=== PATIENT | female | born 1940 | race Caucasian/White ===

== ENCOUNTER 2016-07-27 15:15 | Outpatient (RCR) | payer MEDICARE, OTHER ==
[~2016-07-27 15:15] MED LIST: DICLOFENIC; HCT25T; HYDR1TAB86 PO; LEVO750T6 PO; METH4TAB PO; MSL400TEC; PREMARIN; PRILOSEC; VITAMIN D3; [UNRECOGNIZED DRUG - OTHER]; [UNRECOGNIZED DRUG - OTHER]; [UNRECOGNIZED DRUG - REMARK]
== END 2016-07-27 15:59 | disposition home or self-care (01) ==
PROVIDERS: ATTEND Orthopaedic Surgery
DX: M54.2 Cervicalgia (principal)

== ENCOUNTER 2017-08-06 14:10 | Emergency (ER) | payer MEDICARE, OTHER ==
[~2017-08-06] VITALS: Ht 162.6 cm; Wt 70.3 kg
[2017-08-06] MEDS ORDERED: LIDOCAINE 2% 20 ML (XYLOCAINE) VIAL INJ ONE (15:15)
--- NOTE | 2017-08-06 15:18 | ED Lower Extremity ---
General Chief Complaint: Lower Extremity Stated Complaint: RT FOOT BURNING AND STINGING Nursing Triage Note: PATIENT WAS STEPPED ON BY A HORSE 1 MONTH AGO. SHE HAD XRAY OF HER RIGHT FOOT AT THAT TIME THAT SHOWED NO FRACTURE. SHE HAS CONTINUED TO HAVE PAIN, BURNING AND STINGING WITH NO IMPROVEMENT X1 MONTH AND DECIDED TO COME GET IT CHECKED OUT AGAIN TODAY. Nursing Sepsis Screen: No Definite Risk Source: patient Exam Limitations: no limitations History of Present Illness Date Seen by Provider: Aug 06, 2017 Time Seen by Provider: 15:14 Initial Comments to ER with reports ofpain over the dorsal lateral right foot. She was stepped on by a horse one month ago today. She was initially seen by primary care and had an x-ray done which was normal. She then followed up with Enio De Leon on the nurse practitioner from orthopedics who gave her a stoplight boot but she states the position that it held her foot and was uncomfortable so she didn't work. She has a swollen tender bump over the lateral aspect of the foot now. No fevers or chills. Onset: just prior to arrival Severity: moderate Pain/Injury Location: right foot (no hematoma) Method of Injury: direct blow Modifying Factors: Worse With Movement Allergies and Home Medications Allergies Uncoded Allergies: SULFA (Allergy, 09/02/09) Home Medications Doxycycline Hyclate 100 Mg Tablet, 100 MG PO BID Prescribed by: SAJI GRIER on 08/06/17 1614 Hydrocodone Bit/Acetaminophen 1 Each Tablet, 1 EACH PO Q 4 - 6 HRS PRN Prescribed by: ANTWAN CLAYTON on 10/01/08 1705 Hydrocodone/Acetaminophen 1 Each Tablet, 1 EACH PO Q6H PRN for PAIN-MODERATE TO SEVERE Prescribed by: SAJI GRIER on 08/06/17 1614 Levofloxacin 750 Mg Tablet, 750 MG PO QD FOR INFECTION Prescribed by: TERRY RG on 09/03/09147 Methylprednisolone 4 Mg/Dose-Pack Tab.ds.pk, 0 PO UD Prescribed by: TERRY RG on 09/03/09147 Patient Home Medication List Home Medication List Reviewed: Yes Constitutional: see HPI EENTM: see HPI Respiratory: no symptoms reported Cardiovascular: no symptoms reported Genitourinary: no symptoms reported Musculoskeletal: no symptoms reported Skin: see HPI Psychiatric/Neurological: No Symptoms Reported Past Netemvt-Xxxnwn-Rruubu Hx Patient Social History Alcohol Use: Denies Use Recreational Drug Use: No Smoking Status: Never a Smoker 2nd Hand Smoke Exposure: No Recent Foreign Travel: No Contact w/Someone Who Travel: No Recent Infectious Disease Expo: No Recent Hopitalizations: No Physical Abuse: No Sexual Abuse: No Seasonal Allergies Seasonal Allergies: No Past Medical History Surgeries: Yes Gallbladder, Hysterectomy, Orthopedic Respiratory: No Cardiac: Yes Hypertension Neurological: No Genitourinary: No Gastrointestinal: No Musculoskeletal: Yes Chronic Back Pain Endocrine: Yes Diabetes, Non-Insulin dep HEENT: No Cancer: No Psychosocial: No Nursing Suicide Risk Score: 0 Integumentary: No Blood Disorders: No Physical Exam Vital Signs Vital Signs - First Documented 08/06/17 14:20 Temp 98.0 Pulse 103 Resp 18 B/P (MAP) 126/95 (105) Pulse Ox 97 Capillary Refill : Less Than 3 Seconds General Appearance: WD/WN, no apparent distress HEENT: PERRL/EOMI, normal ENT inspection Neck: non-tender, full range of motion Respiratory: no respiratory distress, no accessory muscle use Hips: bilateral hip non-tender, bilateral hip normal inspection, bilateral hip normal range of motion Legs: bilateral leg non-tender, bilateral leg normal inspection, bilateral leg normal range of motion Knees: bilateral knee non-tender, bilateral knee normal inspection, bilateral knee normal range of motion Ankles: bilateral ankle non-tender, bilateral ankle normal inspection, bilateral ankle normal range of motion Feet: right foot other (tthere is a half-dollar sized area of fluctuance with tenderness to palpation over the dorsal lateral aspect of the right foot. Skin overlying this is erythematous. This will need to be abscessor hematoma. She is not on any anticoagulants so I'll anesthetize the skin and attempt to expel this.) Neurologic/Psychiatric: alert, normal mood/affect Skin: normal color, warm/dry Procedures/Interventions I&D : Blade Size: 11 I & D Procedure: betadine prep Packing/Drain: Idoform 1/ Progress over the most fluctuant area to the dorsal lateral aspect of the right foot I anesthetized with 2 mL of 2% lidocaine without epinephrine. This was after the skin was cleansed with a Betadine swab. This was allowed to dry. A 1 cm incision was made with 11 blade scalpel. A moderate amount of clotted blood of grape jelly consistency was expelled. Culture was collected and sent to lab. There is no purulence to this. Wound was left open and packed with quarter inch iodoform packing. This was then covered with 4 x 4 gauze and Coban. Progress/Results/Core Measures Results/Orders My Orders Orders - SAJI GRIER APRN Foot, Right, 3 View (08/06/17 15:07) Lidocaine 2% Injection 20 Ml (Xylocaine (08/06/17 15:15) Wound Culture (08/06/17 15:20) Vital Signs/I&O 08/06/17 14:20 Temp 98.0 Pulse 103 Resp 18 B/P (MAP) 126/95 (105) Pulse Ox 97 Blood Pressure Mean: 105 Diagnostic Imaging Diagonstic Imaging: Xray Comments NAME: BARON ARECHIGA MED REC#: [id number] PT STATUS: REG ER : 1940 PHYSICIAN: SAJI GRIER APRN ADMIT DATE: 08/06/17/ER Signed Date of Exam:08/06/17 FOOT, RIGHT, 3 VIEW INDICATION: Horse stepped on her foot about a month ago. FINDINGS: The alignment is normal. Very tiny osseous density adjacent to the base of the proximal phalanx of the fifth toe. Similar tiny osseous lesions seen at the base of the fifth metatarsal. The possibility of tiny avulsion fractures cannot be excluded. Otherwise, mild degenerative changes. IMPRESSION: Questionable tiny avulsion fractures about the fifth metatarsal, as described. Mild degenerative changes. No other acute fracture or dislocation. Dictated by: Dictated on workstation # [id number] Dict: 08/06/17 1541 Trans: 08/06/17 1549 [facility] [id number] Interpreted by: ORLIN MERRITT MD Electronically signed by: ORLIN MERRITT MD 08/06/17 1549 Departure Impression Primary Impression: Traumatic hematoma of right foot Disposition: 01 HOME, SELF-CARE Condition: Stable Departure-Patient Inst. Decision time for Depature: 16:12 Referrals: DION YANEZ (PCP/Family) Primary Care Physician Patient Instructions: HEMATOMA Add. Discharge Instructions: 1. Change the packing inside of the wound once a day. Change the dressing overlying the wound at least once a day and more often if needed as it becomes saturated. Return to the emergency room for any increasing redness swelling or pain. Follow up with Zakiya Yanez later this week for recheck. Antibiotics as directed. You may shower allowing water run over this but do not soak it in water such as waiting in a bathtub, swimming pool or [place] until the wound has healed.All discharge instructions reviewed with patient and/or family. Voiced understanding. Scripts Hydrocodone/Acetaminophen ([place] 5-325 Tablet) 1 Each Tablet 1 EACH PO Q6H PRN for PAIN-MODERATE TO SEVERE, #10 TAB Prov: SAJI GRIER APRN 08/06/17 Doxycycline Hyclate (Doxycycline Hyclate) 100 Mg Tablet 100 MG PO BID, #14 TAB Prov: SAJI GRIER APRN 08/06/17 SAJI GRIER APRN Aug 06, 2017 15:18
--- NOTE | 2017-08-06 15:48 | Diagnostic Imaging Report ---
INDICATION: Horse stepped on her foot about a month ago. FINDINGS: The alignment is normal. Very tiny osseous density adjacent to the base of the proximal phalanx of the fifth toe. Similar tiny osseous lesions seen at the base of the fifth metatarsal. The possibility of tiny avulsion fractures cannot be excluded. Otherwise, mild degenerative changes. IMPRESSION: Questionable tiny avulsion fractures about the fifth metatarsal, as described. Mild degenerative changes. No other acute fracture or dislocation. Dictated by: Dictated on workstation # [id number]
[2017-08-06] MEDS ORDERED: HYDR-757 PO (16:14)
[2017-08-06] MEDS ORDERED: DOXY100T2 PO ×2 (16:14→16:18)
[2017-08-06 16:21] VITALS: BP 126/95
[2017-08-27] MEDS ORDERED: DICL75TA2 PO (09:24)
[2017-08-27] MEDS ORDERED: LISI10TA2 PO (09:24)
[2017-08-27] MEDS ORDERED: TRIA1CAP4 PO (09:24)
[2017-08-27] MEDS ORDERED: METF750T2 PO (09:24)
[2017-08-27] MEDS ORDERED: GABA-486 PO (09:24)
[2017-08-27] MEDS ORDERED: OMEP40CA36 PO (09:24)
[2017-08-27] MEDS ORDERED: POTA20TA8 PO (09:24)
[2017-08-27] MEDS ORDERED: EST1.25T PO (09:36)
[2017-08-27] MEDS ORDERED: LORA10TA7 PO (09:36)
[2017-08-27] MEDS ORDERED: NFBIOT1000 PO (09:36)
[2017-08-27] MEDS ORDERED: MAGN400T39 PO (09:36)
[2017-08-27] MEDS ORDERED: L.AC1CAP6 PO (09:36)
[2017-08-27] MEDS ORDERED: CYCL10TA9 PO (09:36)
[2017-08-27] MEDS ORDERED: VITA1TAB17 PO (09:36)
[2017-08-27] MEDS ORDERED: FOLI0.4T2 PO (09:36)
== END 2017-08-06 16:26 | disposition home or self-care (01) ==
LOC: EDUNIT# 14:10 → ER 14:12
DX: S90.31XA Contusion of right foot, initial encounter (principal); I10 Essential (primary) hypertension; E11.9 Type 2 diabetes mellitus without complications; Z88.2 Allergy status to sulfonamides; Z79.52 Long term (current) use of systemic steroids; Z90.710 Acquired absence of both cervix and uterus; X58.XXXA Exposure to other specified factors, initial encounter
CPT/HCPCS: 73630; 87070; 87205

== ENCOUNTER → 2017-09-14 | Outpatient (CLI) | payer MEDICARE, OTHER ==
[~2017-09-14] MED LIST changes: +CYCL10TA9 PO; +DICL75TA2 PO; +DOXY100T2 PO; +EST1.25T PO; +FOLI0.4T2 PO; +GABA-486 PO; +HYDR-757 PO; +L.AC1CAP6 PO; +LISI10TA2 PO; +LORA10TA7 PO; +MAGN400T39 PO; +METF750T2 PO; +NFBIOT1000 PO; +OMEP40CA36 PO; +POTA20TA8 PO; +TRIA1CAP4 PO; +VITA1TAB17 PO
--- NOTE | 2017-09-14 11:11 | Diagnostic Imaging Report ---
PROCEDURE: US Non-ob pelvis comp/trans. TECHNIQUE: Multiple realtime grayscale images were obtained of the pelvis in various projections endovaginally. Transabdominal imaging was also performed. INDICATION: Right ovarian cyst noted on recent CT. Correlation is made with CT study from 08/26/2017. The uterus is surgically absent. The right ovary does contain a large cyst measuring 7.7 x 5.1 x 5.6 cm. No internal vascularity is seen. Left ovary contains several smaller cysts, largest approximately 18 mm in size. There is blood flow bilaterally. No free fluid is seen. IMPRESSION: Bilateral ovarian cysts, largest on the right correlating with the CT abnormality. Followup ultrasound to confirm stability could be obtained. Dictated by: Dictated on workstation # [id number]
== END ==
LOC: RAD 09:54
PROVIDERS: ATTEND Surgery
DX: N83.292 Other ovarian cyst, left side (principal); N83.291 Other ovarian cyst, right side
CPT/HCPCS: 76830; 76856

== ENCOUNTER 2017-10-15 05:48 | Outpatient (CLI) | payer MEDICARE, OTHER ==
[~2017-10-15] VITALS: Ht 162.6 cm; Wt 70.3 kg
[2017-10-15] MEDS ORDERED: DIPH25CA79 PO (11:55)
[2017-10-15] MEDS ORDERED: KRIL1CAP18 PO (11:55)
== END 2017-10-15 12:08 | disposition home or self-care (01) ==
LOC: PREOP 05:48
PROVIDERS: ATTEND Obstetrics & Gynecology
DX: Z01.818 Encounter for other preprocedural examination (principal)

== ENCOUNTER 2017-10-18 08:22 | Day surgery (SDC) | payer MEDICARE, OTHER ==
[~2017-10-18] VITALS: Ht 162.6 cm; Wt 70.3 kg
[~2017-10-18 08:22] MED LIST changes: +DIPH25CA79 PO; +KRIL1CAP18 PO
[2017-10-18] MEDS ORDERED: ceFAZolin INJECTION 1,000 MG in NS (IVPB) 50 ML IV ONE (08:45)
[2017-10-18] MEDS ORDERED: LACTATED RINGERS 1,000 ML IV PRN ×2 (08:45)
[2017-10-18 08:53] VITALS: BP 129/82
[2017-10-18] MEDS ORDERED: ONDANSETRON 4 MG/2 ML (SDV) Z0FRAN IV ONE (09:00)
[2017-10-18] MEDS ORDERED: FAMOTIDINE 20MG/2ML IV (PEPCID) IV ONE (09:00)
[2017-10-18 09:04] LABS: BASOPHILS # (AUTO) 0.1 10^3/uL (0.0-0.1); BASOPHILS % (AUTO) 0 % (0-10); EOSINOPHILS # (AUTO) 0.3 10^3/uL (0.0-0.3); EOSINOPHILS % (AUTO) 2 % (0-10); HEMATOCRIT 43 % (35-52); HEMOGLOBIN 14.8 G/DL (11.5-16.0); LYMPHOCYTES # (AUTO) 7.9 X 10^3 (1.0-4.0); LYMPHOCYTES % (AUTO) 48 % (12-44); MEAN CORPUSCULAR HEMOGLOBIN 33 PG (25-34); MEAN CORPUSCULAR HGB CONC 35 G/DL (32-36); MEAN CORPUSCULAR VOLUME 94 FL (80-99); MEAN PLATELET VOLUME 9.1 FL (7.4-10.4); MONOCYTES % (AUTO) 6 % (0-12); NEUTROPHILS # (AUTO) 7.1 X 10^3 (1.8-7.8); NEUTROPHILS % (AUTO) 43 % (42-75); PLATELET COUNT 432 10^3/uL (130-400); WHITE BLOOD COUNT 16.3 10^3/uL (4.3-11.0)
[2017-10-18] MEDS ORDERED: ceFAZolin 1,000 MG (ANCEF) VIAL ONE (09:04)
[2017-10-18] MEDS ORDERED: NS (IVPB) 50 ML ONE (09:04)
[2017-10-18] MEDS ORDERED: ONDANSETRON 4 MG/2 ML (SDV) Z0FRAN ONE ×2 (09:06→11:07)
[2017-10-18 09:22] LABS: BUN/CREATININE RATIO 20; CALCIUM 9.7 MG/DL (8.5-10.1); CARBON DIOXIDE 26 MMOL/L (21-32); CHLORIDE 98 MMOL/L (98-107); CREATININE SERUM 0.75 MG/DL (0.60-1.30); GFR ESTIMATED > 60; GLUCOSE 88 MG/DL (70-105); POTASSIUM 3.4 MMOL/L (3.6-5.0); SODIUM 136 MMOL/L (135-145)
[2017-10-18] MEDS ORDERED: BUPIVACAINE 0.25% 30 ML (SENSORCAINE) VIAL ONE (09:24)
[2017-10-18] MEDS ORDERED: MIDAZOLAM 2 MG/2 ML (VERSED) VIAL ONE (09:53)
[2017-10-18] MEDS ORDERED: fentaNYL INJECTION 100 MCG/2 ML AMP ONE (09:53)
[2017-10-18 10:15] LABS: BAND NEUTROPHILS 1 %; BASOPHILS % (MANUAL) 0 %; EOSINOPHILS % (MANUAL) 5 %; LYMPHOCYTES % (MANUAL) 41 %; MONOCYTES % (MANUAL) 3 %; NEUTROPHILS % (MANUAL) 48 %; RBC MORPH NORMAL; REACTIVE LYMPHOCYTES 2 %
[2017-10-18] MEDS ORDERED: D5 LR IV SOLUTION 1,000 ML IV SCH (10:25)
--- NOTE | 2017-10-18 10:25 | Progress Note-Pre Operative ---
Pre-Operative Progress Note H&P Reviewed The H&P was reviewed, patient examined and no changes noted. Date Seen by Provider: Oct 18, 2017 Time Seen by Provider: 10:00 Date H&P Reviewed: Oct 18, 2017 Time H&P Reviewed: 09:45 Pre-Operative Diagnosis: Pelvic cystic mass ALAN MALDONADO DO Oct 18, 2017 10:25 am
[2017-10-18] MEDS ORDERED: HYDR-757 PO (10:27)
[2017-10-18] MEDS ORDERED: IBUP-1773 PO (10:27)
--- NOTE | 2017-10-18 10:29 | Discharge Inst-Women's Service ---
Discharge Inst-Women's Serv Depart Medication/Instructions New, Converted or Re-Newed RX: RX on Chart Consults/Follow Up Additional Follow Up: Yes Orders/Referrals Dr. Plata in 2 weeks Activity Activity: Activity as Tolerated Driving Instructions: You May Drive (do not drive if taking hydrocodone) NO SMOKING: NO SMOKING Diet Discharge Diet: No Restrictions Symptoms to Report to : Bleeding Excessive, Pain Increased, Fever Over 101 Degrees F, Questions/Concerns For Any Problems or Questions: Contact Your Physician Skin/Wound Care Infection Signs and Symptoms: Increased Redness, Foul Odor of Wound, Increased Drainage, Skin Itchy or Has a Rash, Increased Swelling, Temperature Above 101 F Operative Area Clean and Dry: Keep Incision Clean/Dry Stitches/Pema/Dermabond: Dermabond, Care of Stitches Bathing Instructions: ALAN Shi DO Oct 18, 2017 10:29 am
[2017-10-18] MEDS ORDERED: HYDROcodone/APAP 5 MG/325 MG (LORTAB) TAB PO PRN (10:30)
[2017-10-18] MEDS ORDERED: ONDANSETRON 4 MG/2 ML (SDV) Z0FRAN IVP PRN ×2 (10:30→11:15)
[2017-10-18] MEDS ORDERED: KETOROLAC 30 MG/ML VIAL IVP ONE (10:30)
[2017-10-18] MEDS ORDERED: proPOfol 200 MG/20 ML (DIPRIVAN) VIAL IV ONE (11:07)
[2017-10-18] MEDS ORDERED: ROCURONIUM 10 MG/ML 5 ML SYRINGE IV ONE (11:07)
[2017-10-18] MEDS ORDERED: ISOFLURANE (FORANE) 15 ML/15 MIN INHALATION ONE (11:07)
[2017-10-18] MEDS ORDERED: LIDOCAINE PF 2% 5 ML (XYLOCAINE) VIAL ONE (11:07)
[2017-10-18] MEDS ORDERED: MEPERIDINE (DEMEROL) INJ 50 MG/ML IVP PRN (11:15)
[2017-10-18] MEDS ORDERED: GLYCOPYRROLATE 0.2 MG/ML (ROBINUL) 2 ML VIAL ONE (11:45)
[2017-10-18] MEDS ORDERED: NEOSTIGMINE 1 MG/ML 5 ML SYRINGE ONE (11:45)
[2017-10-18] MEDS: morphine INJ 10 MG/ML 1ML (SYR OR VIAL) IVP PRN ×2 (12:18→12:22)
--- NOTE | 2017-10-18 12:23 | Anesthesia-General Post-Op ---
General Patient Condition Mental Status/LOC: Same as Preop Cardiovascular: Satisfactory Nausea/Vomiting: Absent Respiratory: Satisfactory Pain: Controlled Complications: Absent Post Op Complications Complications None Follow Up Care/Instructions Patient Instructions None needed. Anesthesia/Patient Condition Patient Condition Patient is doing well, no complaints, stable vital signs, no apparent adverse anesthesia problems. No complications reported per nursing. [place] [facility] [place]: Yes HANSA HUBER CRNA Oct 18, 2017 12:23
[2017-10-18 13:05] VITALS: BP 139/77
[2017-10-18 13:35] VITALS: BP 120/65
[2017-10-18 14:05] VITALS: BP 122/60
--- NOTE | 2017-10-18 14:26 | OPERATIVE REPORT ---
DATE OF SERVICE: 10/18/2017 PREOPERATIVE DIAGNOSIS: A 77-year-old female with cystic pelvic mass. POSTOPERATIVE DIAGNOSES: A 77-year-old female with cystic pelvic mass, right ovarian simple cystic mass and grossly normal-appearing left ovary. PROCEDURE: Laparoscopic bilateral salpingo-oophorectomy. SURGEON: Alan Maldonado DO ANESTHESIA: General endotracheal. ESTIMATED BLOOD LOSS: Minimal. URINE OUTPUT: 75 mL clear at the end of the procedure. FLUIDS: 550 mL Lactated Ringer's solution. FINDINGS: A simple cystic appearing 7 x 5 cm right ovarian cyst with no evidence of excrescences and clear fluid within it. Grossly normal-appearing left ovary. SPECIMEN SENT: Bilateral ovaries, right ovarian cyst aspirate and pelvic washings. INDICATION FOR PROCEDURE: This 77-year-old female was sent to my office due to an incidental finding of a pelvic mass on CT exam and follow up ultrasound revealed that it was simple appearing in nature. Tumor markers were negative. There is no pelvic lymphadenopathy appreciated on CT exam. Due to the suspicion for benign findings, I discussed with the patient removal of this mass laparoscopically. Risks of the procedure were discussed with the patient in detail with her family present. Risk of bleeding, infection, damage to any of the surrounding structures including, but not limited to bowel, bladder, kidneys. Risk for metastasis of an iatrogenic rupture was discussed with the patient as well. Risk from anesthesia pre and postoperative expectations in postoperative recovery timeframe was all discussed. After all of her questions were answered, consent was obtained in the preoperative area and the patient was taken to the operating room. OPERATIVE REPORT IN DETAIL: Once in the operating room, general anesthesia was found to be adequate, placed in the supine position and prepped and draped in normal sterile fashion. Guzman catheter was placed using sterile technique. I then started by infiltrating supraumbilically the skin with 0.25% Marcaine and making a 5 mm incision. A Veress needle is introduced through these incisions and intraperitoneal placement was confirmed using a saline drop test. I then proceeded with insufflation using CO2 gas and an opening pressure of 5 mmHg was noted. I proceeded to a maximum pressure of 15 mmHg at which point I removed the Veress needle and introduced a 5 mm blunt trocar through the incision. Intraperitoneal placement was once again confirmed using the laparoscope. I then had the patient placed in steep Trendelenburg after briefly examining the upper abdominal anatomy, which appears to be grossly normal. After moving the bowel out of the way, there is a normal-appearing left ovary and tube, which is identified. Two separate trocars were placed. A 12 mm suprapubic trocar and a 5 mm left lower quadrant trocar was placed in similar fashion. Once these were in place, I am able to manipulate my findings. In order to amputate the left ovary, which I grasped using a laparoscopic [place] and I am able to bipolar cauterize and transect the IP ligament using the LigaSure device. Once this was done, I am able to dissect the left ovary and tube off the left pelvic sidewall. In similar fashion, I have to isolate the right infundibulopelvic ligament from this ovarian cyst, which I am able to elevate up out of the pelvis. Once it was isolated, I bipolar cauterized and transected using the LigaSure amputating away from the sidewall. I then introduced an Endopouch bag into the peritoneal cavity through my 12 mm incision trocar. The large ovarian specimen was then placed within the Endopouch bag. I then used a laparoscopic needle to drain the fluid off of this to allow for removal through the 12 mm site. Once this was done, it was easily removed through the 12 mm site without extending the incision. I then on a second pass placed a second Endopouch bag through the 12 mm site and removed the left ovary and tube. Once this was done, there was no active bleeding noted from any of my dissection planes. I copiously irrigated the pelvis using normal saline. Once again, no active bleeding was noted. I have the patient taken out of steep Trendelenburg and released insufflation through my trocar site, removing all 3 trocars under direct visualization of the laparoscope. A 10 mL of 0.25% Marcaine were placed in the peritoneal cavity for postoperative pain management. I then closed the fascia of the 12 mm incision using 0 Vicryl suture in interrupted fashion. The skin reapproximated using 4-0 Monocryl in interrupted subcuticular stitches. Dermabond was applied to the incision and Band-Aids were placed over these. The patient tolerated the procedure well and sent to recovery area in stable condition. Lap and sponge counts were correct at the end of the procedure. Instrument count was correct as well. Guzman catheter was removed in the operating room. Job ID: [id number] DocumentID: [id number] Dictated Date: 10/18/2017 12:02:38 Clerical Order Filler Date: 10/18/2017 14:25:36 Dictated By: ALAN MALDONADO DO
[2017-10-18 14:30] VITALS: BP 122/60
== END 2017-10-18 14:30 | disposition home or self-care (01) ==
LOC: SDC 08:22
PROVIDERS: ATTEND Obstetrics & Gynecology
DX: N83.201 Unspecified ovarian cyst, right side (principal); I10 Essential (primary) hypertension; K21.9 Gastro-esophageal reflux disease without esophagitis; E11.9 Type 2 diabetes mellitus without complications; Z79.899 Other long term (current) drug therapy; Z79.84 Long term (current) use of oral hypoglycemic drugs
CPT/HCPCS: 36415; 80048; 85007; 85027; 86850; 86900; 86901; 87081; 94664

== ENCOUNTER 2017-10-20 10:07 | Emergency (ER) | payer MEDICARE, OTHER ==
[~2017-10-20] VITALS: Ht 162.6 cm; Wt 69.4 kg
[~2017-10-20 10:07] MED LIST changes: +IBUP-1773 PO
--- NOTE | 2017-10-20 10:48 | ED Abdominal Pain ---
General Chief Complaint: -Female Stated Complaint: HAVING TROUBLE URINATING Nursing Triage Note: pt presents to ed with complaints of "dribbling" when trying to urinate. pt reports she feels like she is having some retention and unable to fully empty her bladder. pt had a opherectomy done by justine. pt reports she had some issues prior to surgery but feels they have increased since. pt also believes she has a yeast infection. Sepsis Screen: No Definite Risk Source of Information: Patient, Family Exam Limitations: No Limitations History of Present Illness Date Seen by Provider: Oct 20, 2017 Time Seen by Provider: 10:27 Initial Comments A 77-year-old white female presents with urinary retention following nephrectomy for ovarian cyst by Dr. PLATA 2 days ago. The patient has been able to pass small amounts of urine but still has an uncomfortable full sensation over her bladder. She has had no associated fever or chills, she denies hematuria, and has had no associated nausea or vomiting. Allergies and Home Medications Allergies Coded Allergies: Sulfa (Sulfonamide Antibiotics) (Unverified Allergy, Mild, ITCHING, ) Home Medications Biotin 1,000 Mcg Tablet, 1,000 MCG PO DAILY, (Reported) Diclofenac Sodium 75 Mg Tablet.dr, 75 MG PO BID PRN for FOOT/BACK/KNEE PAIN, ( Reported) Diphenhydramine HCl 25 Mg Capsule, 25 MG PO HS, (Reported) Estrogens Conjugated 1.25 Mg Tab, 1.25 MG PO DAILY, (Reported) Folic Acid 0.4 Mg Tablet, 0.4 MG PO DAILY, (Reported) Gabapentin 100 Mg Capsule, 100 MG PO HS, (Reported) Hydrocodone/Acetaminophen 1 Each Tablet, 1 TAB PO Q4H PRN for PAIN-MODERATE Prescribed by: ALAN PLATA on 10/18/17 1027 Ibuprofen 600 Mg Tablet, 600 MG PO Q6H Prescribed by: ALAN PLATA on 10/18/17 1027 Krill/Om-3/Dha/Epa/Phospho/Ast 1 Each Capsule, 1 EACH PO DAILY, (Reported) L.acidoph & Paracasei,B.lactis 1 Each Capsule, 1 CAP PO DAILY, (Reported) Lisinopril 10 Mg Tablet, 10 MG PO DAILY, (Reported) Loratadine 10 Mg Tablet, 10 MG PO DAILY, (Reported) Magnesium Oxide 400 Mg Tablet, 400 MG PO DAILY, (Reported) Metformin HCl 750 Mg Tab.er.24h, 750 MG PO DAILY, (Reported) Omeprazole 40 Mg Capsule.dr, 40 MG PO DAILY, (Reported) Potassium Chloride 20 Meq Tab.er.prt, 20 MEQ PO MoWeFr, (Reported) Triamterene/Hydrochlorothiazid 1 Each Capsule, 1 CAP PO DAILY, (Reported) Vitamin B Complex 1 Each Tablet, 1 TAB PO DAILY, (Reported) Patient Home Medication List Home Medication List Reviewed: Yes Review of Systems Constitutional: No chills, No fever EENTM: No Blurred Vision Respiratory: Denies Cough Gastrointestinal: Denies Abdomen Distended, Denies Diarrhea, Denies Vomiting Genitourinary: Denies Burning; Incontinence, Urgency Musculoskeletal: No back pain Skin: No rash Psychiatric/Neurological: No Symptoms Reported Endocrine: No Symptoms Reported Hematologic/Lymphatic: No Symptoms Reported Past Njqewun-Gesfrv-Omsvgs Hx Past Med/Social Hx: Reviewed Nursing Past Med/Soc Hx Patient Social History Alcohol Use: Denies Use Recreational Drug Use: No Smoking Status: Never a Smoker 2nd Hand Smoke Exposure: No Recent Foreign Travel: No Contact w/Someone Who Travel: No Recent Infectious Disease Expo: No Recent Hopitalizations: Yes (CONCUSSION) Physical Abuse: No Sexual Abuse: No Mistreated: No Fear: No Immunizations Up To Date Tetanus Booster (TDap): Unknown Date of Pneumonia Vaccine: Dec 15, 2014 Seasonal Allergies Seasonal Allergies: Yes Past Medical History Surgeries: Yes (BILAT TKR, BACK X4) Gallbladder, Hysterectomy, Oophorectomy, Orthopedic Respiratory: No Cardiac: Yes Hypertension Neurological: No Reproductive Disorders: Yes Female Reproductive Disorders: Ovarian Cyst 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: Hysterectomy Sexually Transmitted Disease: No HIV/AIDS: No Genitourinary: No Gastrointestinal: Yes Colitis, Gastroesophageal Reflux, Chronic Constipation, Chronic Diarrhea Musculoskeletal: Yes (STENOSIS) Arthritis, Chronic Back Pain Endocrine: Yes Diabetes, Non-Insulin dep HEENT: No Loss of Vision: Bilateral Hearing Impairment: Denies Cancer: No Psychosocial: No Nursing Suicide Risk Score: 0 Integumentary: No Blood Disorders: No Adverse Reaction/Blood Tranf: No (HAS HAD BLOOD WITH NO REACTION) Family Medical History No Pertinent Family Hx Physical Exam Vital Signs Vital Signs - First Documented 10/20/17 10:17 Temp 97.6 Pulse 88 Resp 16 B/P (MAP) 157/68 (97) Pulse Ox 94 Capillary Refill : Less Than 3 Seconds Height/Weight/BMI Height: 5'4.00" Weight: 153lbs. 0.0oz. 69.658110dl; 26.6 BMI Method:Stated General Appearance: WD/WN, no apparent distress HEENT: normal ENT inspection Neck: normal inspection Respiratory: lungs clear Cardiovascular: regular rate, rhythm Gastrointestinal: normal bowel sounds, non tender, soft Extremities: normal range of motion, non-tender Back: normal inspection Neurologic/Psychiatric: no motor/sensory deficits, alert, normal mood/affect Skin: normal color, warm/dry Progress/Results/Core Measures Results/Orders Lab Results Laboratory Tests Test 10/20/17 10:40 Range/Units Urine Color ORANGE Urine Clarity SLIGHTLY CLOUDY Urine pH 5 5-9 Urine Specific [place] 1.010 L 1.016-1.022 Urine Protein NEGATIVE NEGATIVE Urine Glucose (UA) NEGATIVE NEGATIVE Urine Ketones NEGATIVE NEGATIVE Urine Nitrite POSITIVE H NEGATIVE Urine Bilirubin 1+ H NEGATIVE Urine Urobilinogen 1 NORMAL MG/DL Urine Leukocyte Esterase NEGATIVE NEGATIVE Urine RBC (Auto) NEGATIVE NEGATIVE Urine RBC NONE /HPF Urine WBC NONE /HPF Urine Squamous Epithelial Cells RARE /HPF Urine Crystals NONE /LPF Urine Bacteria NEGATIVE /HPF Urine Casts NONE /LPF Urine Mucus NEGATIVE /LPF Urine Culture Indicated YES My Orders Orders - YUSUF EMERY MD Ua Culture If Indicated (10/20/17 10:26) Catheter(Urinary) Care .0300, 1500 (10/20/17 10:26) Bladder Scan (10/20/17 10:26) Urine Culture (10/20/17 10:40) Vital Signs/I&O 10/20/17 10:17 Temp 97.6 Pulse 88 Resp 16 B/P (MAP) 157/68 (97) Pulse Ox 94 Blood Pressure Mean: 97 Progress Progress Note : Time: 11:07 Progress Note After consultation with Dr. Batista and after determining that the patient had greater than 200 mL residual urine on catheterization the patient was provided with a leg bag and asked follow up with Dr. Plata on Sunday. Departure Impression Primary Impression: Urinary retention Disposition: 01 HOME, SELF-CARE Condition: Improved Departure-Patient Inst. Decision time for Depature: 11:25 Referrals: YUSUF SRINIVASAN MD (PCP) Primary Care Physician YANEZ,DION J PEDIATRIC OCCUPATIONAL THERAPIST (Family) Primary Care Physician ALAN PLATA DO Patient Instructions: Urinary Retention (DC) Add. Discharge Instructions: All discharge instructions reviewed with patient and/or family. Voiced understanding. Follow-up with Dr. cavazos on Sunday. Employ the catheter and leg bag in the interim. Return if any problems or questions. YUSUF EMERY MD Oct 20, 2017 10:48
[2017-10-20 10:49] LABS: CLARITY,URINE SLIGHTLY CLOUDY; GLUCOSE, URINE (UA) NEGATIVE (NEGATIVE); KETONES,URINE NEGATIVE (NEGATIVE); LEUKOCYTE ESTERASE ,URINE NEGATIVE (NEGATIVE); NITRITE,URINE POSITIVE (NEGATIVE); PH,URINE 5 (5-9); PROTEIN,URINE NEGATIVE (NEGATIVE); UROBILINOGEN,URINE 1 MG/DL (NORMAL)
[2017-10-20 11:00] LABS: BACTERIA,URINE NEGATIVE /HPF; BILIRUBIN,URINE 1+ (NEGATIVE); SQUAMOUS EPITHELIAL CELL,UR RARE /HPF
[2017-10-20 11:02] LABS: COLOR,URINE ORANGE
[2017-10-20 11:58] VITALS: BP 145/87
== END 2017-10-20 11:58 | disposition home or self-care (01) ==
LOC: EDUNIT# 10:07 → ER 10:09
DX: R33.9 Retention of urine, unspecified (principal); I10 Essential (primary) hypertension; K21.9 Gastro-esophageal reflux disease without esophagitis; E11.9 Type 2 diabetes mellitus without complications; Z87.19 Personal history of other diseases of the digestive system; Z90.5 Acquired absence of kidney; Z87.448 Personal history of other diseases of urinary system; Z88.2 Allergy status to sulfonamides; Z79.84 Long term (current) use of oral hypoglycemic drugs; Z96.653 Presence of artificial knee joint, bilateral; Z90.710 Acquired absence of both cervix and uterus
CPT/HCPCS: 51702; 81000; 87088

== ENCOUNTER 2018-01-18 13:58 | Outpatient (CLI) | payer MEDICARE, OTHER ==
[~2018-01-18] VITALS: Ht 162.6 cm; Wt 68.5 kg
[~2018-01-18 13:58] MED LIST changes: +HYDR-4226 PO; -HYDR-757 PO
== END 2018-01-18 14:26 | disposition home or self-care (01) ==
LOC: PREOP 13:58
PROVIDERS: ATTEND Surgery
DX: Z01.818 Encounter for other preprocedural examination (principal)

== ENCOUNTER 2018-01-22 06:55 | Day surgery (SDC) | payer MEDICARE, OTHER ==
[~2018-01-22] VITALS: Ht 162.6 cm; Wt 68.5 kg
[2018-01-22] MEDS ORDERED: LACTATED RINGERS 1,000 ML IV ONE (07:09)
[2018-01-22] MEDS ORDERED: MIDAZOLAM 2 MG/2 ML (VERSED) VIAL ONE (07:15)
[2018-01-22] MEDS ORDERED: PROPOFOL INJECTION 50 ML IV ONE (07:15)
[2018-01-22] MEDS ORDERED: LACTATED RINGERS 1,000 ML IV STA (07:30)
[2018-01-22 07:33] VITALS: BP 149/80
--- NOTE | 2018-01-22 08:16 | Progress Note-Pre Operative ---
Pre-Operative Progress Note H&P Reviewed The H&P was reviewed, patient examined and no changes noted. Date Seen by Provider: Jan 22, 2018 Time Seen by Provider: 08:15 Date H&P Reviewed: Jan 22, 2018 Time H&P Reviewed: 08:15 Pre-Operative Diagnosis: screening colonoscopy ROSAURA VEGA DO Jan 22, 2018 08:16
--- NOTE | 2018-01-22 08:53 | Progress Note-Post Operative ---
Post-Operative Progess Note Surgeon (s)/Anesthesiology Technologist (s) Surgeon ROSAURA VEGA DO Anesthesiology Technologist: na Pre-Operative Diagnosis screening colonoscopy Post-Operative Diagnosis normal colon Procedure & Operative Findings Date of Procedure 01/22/18 Procedure Performed/Findings colonoscopy Anesthesia Type per strategic debriefing officer Estimated Blood Loss Estimated blood loss (mL): na Specimens/Packing Specimens Removed na ROSAURA VEGA DO Jan 22, 2018 08:53
--- NOTE | 2018-01-22 08:55 | Discharge Inst-Simple/Standard ---
Discharge Inst-Standard Patient Instructions/Follow Up Plan of Care/Instructions/FU: Repeat colonoscopy 3 years. Follow up appt. Radha 3 Years. any issues before that be seen at that time. Activity as Tolerated: Yes Discharge Diet: Regular Diet ROSAURA VEGA DO Jan 22, 2018 08:55
[2018-01-22 09:05] VITALS: BP 114/63
[2018-01-22 09:35] VITALS: BP 138/80
[2018-01-22 10:15] VITALS: BP 138/80
--- NOTE | 2018-01-22 13:36 | OPERATIVE REPORT ---
DATE OF SERVICE: 01/22/2018 PREOPERATIVE DIAGNOSES: Screening colonoscopy, history of ulcerative colitis. POSTOPERATIVE DIAGNOSIS: Normal colon. PROCEDURE PERFORMED: Colonoscopy. SURGEON: Rosaura Garcia DO. ANESTHESIA: Per SUPERVISOR FINISHING DEPARTMENT. ESTIMATED BLOOD LOSS: None. COMPLICATIONS: None. INDICATIONS: The patient is a 77-year-old female with a history of ulcerative colitis. She was recommended repeat colonoscopy. She understands risks and benefits and wishes to proceed with procedure. Consent was signed in the chart. DESCRIPTION OF PROCEDURE: The patient was taken to the endoscopy suite, placed in left lateral recumbent position. Timeout was performed. Digital rectal exam was performed. There are some slight external hemorrhoids and little bit of rectal prolapse. No palpable polyps, masses or ulcerations. Scope was inserted into the rectum and advanced all the way to the cecum with minimal difficulty. Prep was adequate. Scope was then slowly retracted back. There were no polyps, mass or ulcerations within the cecum, ascending, transverse, descending and sigmoid colon. Once in the rectum, scope was retroflexed noting no other pathology. Scope was returned to its normal position, slowly withdrawn until completely removed. The patient tolerated procedure well without any complications. She was taken to the recovery room in stable condition. RECOMMENDATIONS: The patient will need a repeat colonoscopy in approximately 3 years. If she has any problems prior to that, she should be reevaluated at that time. Job ID: [id number] DocumentID: [id number] Dictated Date: 01/22/2018 08:57:25 Focuser Date: 01/22/2018 13:36:06 Dictated By: ROSAURA GARCIA DO
== END 2018-01-22 10:15 | disposition home or self-care (01) ==
LOC: ENDO 06:55
PROVIDERS: ATTEND Surgery
DX: Z12.11 Encounter for screening for malignant neoplasm of colon (principal); Z87.19 Personal history of other diseases of the digestive system; I10 Essential (primary) hypertension; G57.93 Unspecified mononeuropathy of bilateral lower limbs; K21.9 Gastro-esophageal reflux disease without esophagitis; Z79.84 Long term (current) use of oral hypoglycemic drugs; Z79.899 Other long term (current) drug therapy

== ENCOUNTER → 2019-01-21 | Outpatient (CLI) | payer MEDICARE, OTHER ==
--- NOTE | 2019-01-21 12:29 | Diagnostic Imaging Report ---
PROCEDURE: US Venous Lower Ext Christiano. TECHNIQUE: Multiple real-time grayscale images were obtained over the lower extremities in various projections, bilaterally. Additional duplex Doppler and color Doppler images were also obtained. INDICATION: Bilateral leg pain. FINDINGS: There is no evidence of right or left lower extremity DVT. Both lower extremity deep venous systems show normal compressibility with normal response to augmentation and Valsalva. No fluid collection or mass is seen. IMPRESSION: No evidence of right or left lower extremity DVT. Dictated by: Dictated on workstation # [id number]
--- NOTE | 2019-01-21 12:55 | Diagnostic Imaging Report ---
PROCEDURE: US Bilateral lower extremity arterial. TECHNIQUE: Multiple real-time grayscale images are obtained through both lower extremity arterial systems with color Doppler imaging and color Doppler spectral analysis. INDICATION: Pain. FINDINGS: Throughout the thighs, there are normal high-resistive triphasic waveforms throughout the bilateral common femorals and superficial femorals and popliteal arteries. There is mild diminished resistance with bi-phasicity of the waveforms below the knees with antegrade flow seen in the bilateral posterior tibials and dorsalis pedis. No focal velocity acceleration or deceleration. No findings of hemodynamically significant stenosis. No segmental occlusion. IMPRESSION: No findings of hemodynamically significant arterial stenosis. Dictated by: Dictated on workstation # [id number]
== END ==
LOC: RAD 10:18
PROVIDERS: ATTEND Nurse Practitioner
DX: M79.661 Pain in right lower leg (principal); M79.662 Pain in left lower leg
CPT/HCPCS: 93925; 93970

== ENCOUNTER → 2019-09-27 | Outpatient (CLI) | payer MEDICARE, OTHER ==
[~2019-09-27] MED LIST changes: -METF750T2 PO; +METF750T45 PO; +OMEP40CA27 PO; -OMEP40CA36 PO
[2019-09-27 06:39] LABS: CHLORIDE 97 MMOL/L (98-107); POTASSIUM 5.6 MMOL/L (3.6-5.0)
[2019-09-27 06:41] LABS: CALCIUM 8.7 MG/DL (8.5-10.1); GLUCOSE 78 MG/DL (70-105)
[2019-09-27 06:42] LABS: CARBON DIOXIDE 18 MMOL/L (21-32)
[2019-09-27 06:45] LABS: CREATININE SERUM 0.81 MG/DL (0.60-1.30); GFR ESTIMATED > 60
[2019-09-27 06:46] LABS: BUN/CREATININE RATIO 15
[2019-09-27 06:51] LABS: SODIUM 125 MMOL/L (135-145)
== END ==
LOC: CVS 06:11
PROVIDERS: ATTEND Internal Medicine
DX: E87.1 Hypo-osmolality and hyponatremia (principal)
CPT/HCPCS: 80048

== ENCOUNTER → 2019-09-28 | Outpatient (CLI) | payer MEDICARE, OTHER ==
[2019-09-28 06:28] LABS: CHLORIDE 98 MMOL/L (98-107); POTASSIUM 5.8 MMOL/L (3.6-5.0); SODIUM 129 MMOL/L (135-145)
[2019-09-28 06:29] LABS: CALCIUM 9.3 MG/DL (8.5-10.1); GLUCOSE 96 MG/DL (70-105)
[2019-09-28 06:31] LABS: CARBON DIOXIDE 19 MMOL/L (21-32)
[2019-09-28 06:33] LABS: CREATININE SERUM 0.78 MG/DL (0.60-1.30); GFR ESTIMATED > 60
[2019-09-28 06:34] LABS: BUN/CREATININE RATIO 15
== END ==
LOC: LABNPT 06:08
PROVIDERS: ATTEND Nurse Practitioner
DX: E87.1 Hypo-osmolality and hyponatremia (principal)
CPT/HCPCS: 80048

== ENCOUNTER → 2021-01-06 | Outpatient (CLI) | payer MEDICARE, OTHER ==
[~2021-01-06] MED LIST changes: +ACYC-112 PO; +AMLO-251 PO; +AMOX500C2 PO; +CEPH500C PO; +CHOL500044 PO; +DIPH25TA31 PO; +ERYT1OIN6 OP; +FAMO40TA72 PO; +FLUC100T6 PO; -FOLI0.4T2 PO; +FOLI0.4T6 PO; +GABA300S2 PO; +LEVO500T80 PO; -LISI10TA2 PO; +LISI10TA25 PO; +MULT-974 PO; +MV-M1TAB38 PO; +OMEG1CAP58 PO; -OMEP40CA27 PO; +OMEP40CA6 PO; +PRED10TA22 PO; +TIZA4CAP8 PO; +TR1C15 TP; +TRIA15CR TP
--- NOTE | 2021-01-06 16:21 | Diagnostic Imaging Report ---
PROCEDURE: MR imaging cervical spine without contrast. TECHNIQUE: Multiplanar, multisequence MR imaging of the cervical spine was performed without contrast. INDICATION: Neck pain COMPARISON: CT cervical spine from 08/26/2017. FINDINGS: Degenerative straightening of cervical spine is stable appearance since prior CT. There is approximately 2 mm of anterolisthesis of C3 on C4 that is also unchanged. No new spondylolisthesis. No fracture or marrow replacing process. No Modic endplate changes. The cervical cord is normal in size and signal. Visualized aspects the brachial plexus are normal. Paravertebral musculature is unremarkable. No cervical lymphadenopathy. C2-C3: No spinal canal or neuroforaminal narrowing. C3-C4: Central left paracentral disc protrusion with a few joint hypertrophy causes mild spinal stenosis. Severe left and moderate right foraminal stenosis is present. C4-C5: Central disc protrusion with uncovertebral joint hypertrophy results in mild spinal stenosis. Moderate right and mild left foraminal narrowing is present. C5-C6: Posterior endplate ridging and uncovertebral hypertrophy causes moderate spinal stenosis and severe bilateral neuroforaminal narrowing. C6-C7: Uncovertebral joint hypertrophy and disc bulging causes mild spinal stenosis and moderate bilateral foraminal narrowing. C7-T1: No spinal canal or neuroforaminal narrowing. IMPRESSION: 1. Multilevel degenerative changes in cervical spine result in 2 different sites of moderate spinal stenosis. 2. Additionally, degenerative changes result in multiple levels of severe neuroforaminal narrowing. 3. Cervical cord maintains normal signal without features of myelomalacia. Dictated by: Dictated on workstation # [id number]
== END ==
LOC: RAD 09:48
PROVIDERS: ATTEND Physician Assistant
DX: M47.22 Other spondylosis with radiculopathy, cervical region (principal); M48.02 Spinal stenosis, cervical region
CPT/HCPCS: 72141

== ENCOUNTER 2021-01-18 08:55 | Day surgery (SDC) | payer MEDICARE, OTHER ==
[~2021-01-18] VITALS: Ht 162.6 cm; Wt 73.9 kg
[2021-01-18] MEDS ORDERED: LACTATED RINGERS 1,000 ML IV ONE (08:59)
[2021-01-18] MEDS ORDERED: LACTATED RINGERS 1,000 ML IV STA (09:04)
[2021-01-18 09:05] VITALS: BP 155/79
--- NOTE | 2021-01-18 09:07 | Progress Note-Pre Operative ---
Pre-Operative Progress Note H&P Reviewed The H&P was reviewed, patient examined and no changes noted. Date Seen by Provider: Jan 18, 2021 Time Seen by Provider: 09:07 Date H&P Reviewed: Jan 18, 2021 Time H&P Reviewed: 09:07 Pre-Operative Diagnosis: iron def anemia ROSAURA VEGA DO Jan 18, 2021 09:07
[2021-01-18] MEDS ORDERED: MIDAZOLAM 2 MG/2 ML (VERSED) VIAL ONE (09:12)
[2021-01-18] MEDS ORDERED: PROPOFOL INJECTION 50 ML IV ONE ×2 (09:12→09:37)
[2021-01-18] MEDS ORDERED: HURRICAINE EXT TUBE (BENZOCAINE) XX PRN (09:15)
[2021-01-18 10:00] VITALS: BP 85/49
[2021-01-18] MEDS ORDERED: PANT40TA2 PO (10:01)
--- NOTE | 2021-01-18 10:01 | Discharge Inst-Simple/Standard ---
Discharge Inst-Standard Discharge Medications New, Converted or Re-Newed RX: Transmitted to Pharmacy Patient Instructions/Follow Up Plan of Care/Instructions/FU: 3 weeks Radha Activity as Tolerated: Yes Discharge Diet: Regular Diet ROSAURA VEGA DO Jan 18, 2021 10:01
--- NOTE | 2021-01-18 10:04 | Progress Note-Post Operative ---
Post-Operative Progess Note Surgeon (s)/Front Desk Receptionist (s) Surgeon ROSAURA VEGA DO Front Desk Receptionist: na Pre-Operative Diagnosis iron def anemia Post-Operative Diagnosis gastritis, colon polyps, hemorrhoids Procedure & Operative Findings Date of Procedure 01/18/21 Procedure Performed/Findings egd c biopsies, colonoscopy c hot bx polypectomy x 2 Anesthesia Type per fountain dispenser Estimated Blood Loss Estimated blood loss (mL): none Specimens/Packing Specimens Removed antrum, body, polyps. ROSAURA VEAG DO Jan 18, 2021 10:04
[2021-01-18 10:05] VITALS: BP 81/50
[2021-01-18 10:10] VITALS: BP 92/55
[2021-01-18 10:40] VITALS: BP 141/75
[2021-01-18 10:50] VITALS: BP 141/75
--- NOTE | 2021-01-18 15:04 | OPERATIVE REPORT ---
DATE OF SERVICE: 01/18/2021 PREOPERATIVE DIAGNOSIS: Iron deficiency anemia. POSTOPERATIVE DIAGNOSES: Gastritis, colon polyps, hemorrhoids. PROCEDURE: EGD with biopsies, colonoscopy with hot biopsy polypectomy x2. SURGEON: Rosaura Garcia DO ANESTHESIA: Per MILLINERY WORKER. ESTIMATED BLOOD LOSS: None. COMPLICATIONS: None. INDICATIONS: The patient is a 80-year-old female with iron deficiency anemia. She was recommended EGD and colonoscopy for further evaluation. She understands risks and benefits and wishes to proceed. Consent was signed in the chart. DESCRIPTION OF PROCEDURE: The patient was taken to the endoscopy suite, placed in left lateral recumbent position. Timeout was performed. Scope was inserted in mouth, down the esophagus, stomach and into the duodenum without difficulty. There were no polyps, masses or ulcerations within the duodenum. Scope was slowly retracted back to stomach where it was further insufflated. Gastritis appearance present. Biopsies of the antrum were obtained. Scope was retroflexed noting no other pathology except for continued changes of apparent gastritis. Biopsy of the body was obtained. Scope was then slowly retracted back to distal esophagus, which had normal appearance. Scope was then slowly retracted back until completely removed. Digital rectal exam was performed noting hemorrhoids. No palpable polyps, masses or ulcerations. Scope was inserted in the rectum and advanced all the way to cecum with minimal difficulty. Prep was adequate. Scope was slowly retracted back. There were no polyps, masses or ulcerations within the cecum, ascending, transverse and descending colon. In the sigmoid colon, a couple of small appearing polyps were present, which hot biopsy polypectomies were performed. Scope was then continuously retracted back until the rectum, where it was also retroflexed noting some internal hemorrhoids. No other pathology. Scope was returned to its normal position, slowly withdrawn until completely removed. The patient tolerated procedure well without any complications. She was taken to recovery room in stable condition. RECOMMENDATIONS: The patient will need repeat colonoscopy on an as needed basis. Any issues with stools be seen at that time. The patient will be changed from Pepcid to Protonix 40 mg daily. We will see how her symptoms are doing in 3 weeks. Job ID: [id number] DocumentID: [id number] Dictated Date: 01/18/2021 10:07:55 Trailer Sections Assembler Date: 01/18/2021 15:02:25 Dictated By: ROSAURA GARCIA DO
--- NOTE | 2021-01-18 15:04 | Anesthesia-General Post-Op ---
MAC Patient Condition Mental Status/LOC: Same as Preop Cardiovascular: Satisfactory Nausea/Vomiting: Absent Respiratory: Satisfactory Pain: Controlled Complications: Absent Post Op Complications Complications None Follow Up Care/Instructions Patient Instructions None needed. Anesthesiology Discharge Order Discharge Order Patient is doing well, no complaints, stable vital signs, no apparent adverse anesthesia problems. No complications reported per nursing. MABLE MORALES CRNA Jan 18, 2021 15:04
== END 2021-01-18 10:50 | disposition home or self-care (01) ==
LOC: ENDO 08:55
PROVIDERS: ATTEND Surgery
DX: K63.5 Polyp of colon (principal); K64.8 Other hemorrhoids; D50.9 Iron deficiency anemia, unspecified; K21.9 Gastro-esophageal reflux disease without esophagitis; I10 Essential (primary) hypertension; E11.9 Type 2 diabetes mellitus without complications; K29.50 Unspecified chronic gastritis without bleeding; Z79.2 Long term (current) use of antibiotics; Z79.84 Long term (current) use of oral hypoglycemic drugs; Z79.899 Other long term (current) drug therapy; Z88.2 Allergy status to sulfonamides
CPT/HCPCS: 88305

== ENCOUNTER 2021-03-30 11:48 | Emergency (ER) | payer MEDICARE, OTHER ==
[~2021-03-30] VITALS: Ht 162 cm; Wt 72.0 kg
[~2021-03-30 11:48] MED LIST changes: +CYCL10TA25 PO; -CYCL10TA9 PO; -LEVO500T80 PO; +LEVO500T81 PO; +PANT40TA2 PO; +POTA-169 PO; -POTA20TA8 PO
[2021-03-30 13:17] VITALS: BP 140/70
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
== END 2021-03-30 15:55 | disposition left against medical advice (07) ==
LOC: EDUNIT# 11:48 → ER 11:49
DX: U07.1 COVID-19 (principal); R53.81 Other malaise; R53.83 Other fatigue; R11.0 Nausea; I10 Essential (primary) hypertension; K21.9 Gastro-esophageal reflux disease without esophagitis; E11.9 Type 2 diabetes mellitus without complications; Z79.899 Other long term (current) drug therapy
CPT/HCPCS: 87635; 87804; 99283

== ENCOUNTER 2021-08-15 05:27 | Outpatient (CLI) | payer MEDICARE, OTHER ==
[~2021-08-15] VITALS: Ht 162.6 cm; Wt 71.4 kg
[~2021-08-15 05:27] MED LIST changes: +FLUC100T10 PO; -FLUC100T6 PO
[2021-08-16] MEDS ORDERED: LEVO25CA4 PO (13:16)
[2021-08-16] MEDS ORDERED: MULT-974 PO (13:16)
[2021-08-18] MEDS ORDERED: ACHD5005 PO (10:48)
[2021-08-18] MEDS ORDERED: DOCU-143 PO (10:48)
== END 2021-08-16 13:20 | disposition home or self-care (01) ==
LOC: PREOP 05:27
PROVIDERS: ATTEND Surgery
DX: Z01.818 Encounter for other preprocedural examination (principal)

== ENCOUNTER 2021-08-18 07:22 | Day surgery (SDC) | payer MEDICARE, OTHER ==
[~2021-08-18] VITALS: Ht 162 cm; Wt 71.4 kg
[2021-08-18] VITALS (11 sets, daily range): BP systolic 120–152; BP diastolic 59–75
[~2021-08-18 07:22] MED LIST changes: +LEVO25CA4 PO
[2021-08-18] MEDS ORDERED: metroNIDAZOLE 500MG/100ML IVPB 100 ML IV ONE (07:30)
[2021-08-18] MEDS ORDERED: ceFAZolin 2 GM IV Premixed 50 ML IV ONE (07:30)
[2021-08-18] MEDS ORDERED: LIDOCAINE/EPI 2% 1:200,00 (XYLOCAINE) 20 ML VIAL ONE (07:40)
[2021-08-18] MEDS ORDERED: LACTATED RINGERS 1,000 ML IV PRN (07:45)
--- NOTE | 2021-08-18 08:13 | Progress Note-Pre Operative ---
Pre-Operative Progress Note H&P Reviewed The H&P was reviewed, patient examined and no changes noted. Date Seen by Provider: Aug 18, 2021 Time Seen by Provider: 08:12 Date H&P Reviewed: Aug 18, 2021 Time H&P Reviewed: 08:12 Pre-Operative Diagnosis: hemorrhoids ROSAURA VEGA DO Aug 18, 2021 08:13
[2021-08-18] MEDS ORDERED: fentaNYL INJ 100 MCG/2 ML AMP ONE (09:34)
[2021-08-18] MEDS ORDERED: LIDOCAINE PF 2% 5 ML (XYLOCAINE) VIAL ONE (09:34)
[2021-08-18] MEDS ORDERED: proPOfol 200 MG/20 ML (DIPRIVAN) VIAL IV ONE (09:34)
[2021-08-18] MEDS ORDERED: MIDAZOLAM 2 MG/2 ML (VERSED) VIAL ONE (09:35)
[2021-08-18] MEDS ORDERED: ONDANSETRON 4 MG/2 ML (SDV) Z0FRAN ONE (09:48)
[2021-08-18] MEDS ORDERED: SEVOFLURANE (ULTANE) 15 ML INHAL SOLN ONE (10:22)
[2021-08-18] MEDS ORDERED: morphine INJ 10 MG/ML 1ML (SYR OR VIAL) ONE (10:36)
[2021-08-18] MEDS ORDERED: PROMETHAZINE INJ 25 MG/ML (PHENERGAN) AMP IVP ONE (10:45)
[2021-08-18] MEDS ORDERED: MEPERIDINE (DEMEROL) INJ 50 MG/ML IVP ONE (10:45)
[2021-08-18] MEDS ORDERED: morphine INJ 10 MG/ML 1ML (SYR OR VIAL) IVP ONE (10:45)
[2021-08-18] MEDS ORDERED: DOCU-143 PO (10:48)
[2021-08-18] MEDS ORDERED: ACHD5005 PO (10:48)
--- NOTE | 2021-08-18 10:52 | Discharge Inst-Simple/Standard ---
Discharge Inst-Standard Discharge Medications New, Converted or Re-Newed RX: Transmitted to Pharmacy Patient Instructions/Follow Up Plan of Care/Instructions/FU: 2 weeks Radha Activity as Tolerated: No Discharge Diet: Regular Diet Other Inst to Patient Follow up Appt: Make appointment for 2 week. Instructions: No lifting greater than 10 pounds. No strenuous activity. Use incentive spirometer at home as directed. No Smoking Skin/Wound Care: You have a plug at the anus, if it doesn't come out in next 24 hours, slowly remove it. Sitz baths 2 times per day and after bowel movements. Symptoms to Report: Appetite Changes, Extremity Discoloration, Numbness/Tingling, Swelling Increased, Bleeding Excessive, Eyesight Changes, Pain Increased, Urine Color Change, Constipation(Persistent), Fever over 101 degree F, Pain/Pressure in chest, Urinating Difficulty, Cough Up/Vomit Blood, Heart Beat Irreg/Pounding, Pain/Pressure in jaw, Vaginal Bleeding Increase, Cramps in feet or legs, Lightheadedness, Pain/Pressure in shoulder, Diarrhea(Persistent), Memory Changes Suddenly, Questions/Concerns, Weight gain consecutive days, Dizziness/Fainting, Nausea/Vomiting, Shortness of Breath, Weight gain over 2 pounds If questions or concerns contact your physician Or seek help at emergency department. ROSAURA VEGA DO Aug 18, 2021 10:51
[2021-08-18] MEDS: HYDROmorphone 2 MG/ML VIAL (DILAUDID) ONE (10:57)
[2021-08-18] MEDS: ONDANSETRON 4 MG/2 ML (SDV) Z0FRAN IVP PRN ×2 (11:50→13:25)
[2021-08-18] MEDS ORDERED: HYDROcodone/APAP 5 MG/325 MG (LORTAB) TAB ONE (12:20)
[2021-08-18] MEDS ORDERED: HYDROcodone/APAP 5 MG/325 MG (LORTAB) TAB PO ONE (12:30)
--- NOTE | 2021-08-18 12:44 | Anesthesia-General Post-Op ---
General Patient Condition Mental Status/LOC: Same as Preop Cardiovascular: Satisfactory Nausea/Vomiting: Absent Respiratory: Satisfactory Pain: Controlled Complications: Absent Post Op Complications Complications None Follow Up Care/Instructions Patient Instructions None needed. Anesthesia/Patient Condition Patient Condition Patient is doing well, no complaints, stable vital signs, no apparent adverse anesthesia problems. No complications reported per nursing. LISA TREVINO CRNA Aug 18, 2021 12:44
--- NOTE | 2021-08-18 23:23 | OPERATIVE REPORT ---
DATE OF SERVICE: 08/18/2021 PREOPERATIVE DIAGNOSIS: Hemorrhoids. POSTOPERATIVE DIAGNOSIS: Hemorrhoids. PROCEDURE: Hemorrhoidectomy x2. SURGEON: Rosaura Garcia DO ANESTHESIA: General. ESTIMATED BLOOD LOSS: Minimal. COMPLICATIONS: None. INDICATIONS: The patient is a 81-year-old female with hemorrhoids that causing her discomfort and bleeding. She understands risks and benefits of procedure and wishes to proceed. Consent was signed in the chart. DESCRIPTION OF PROCEDURE: The patient was taken to the operating suite, placed in lithotomy position. Timeout was performed. Local anesthetic was infiltrated to the lateral aspects of the anus, hemorrhoids visualized. A Desmarres retractor was inserted visualizing the right posterior hemorrhoid which was a large and inflamed. This was lightly grasped. Harmonic focus was then used to excise the hemorrhoid tissue. The left lateral hemorrhoid was inspected, noting a large and slightly inflamed hemorrhoid present, which was grasped, elevated and Harmonic focus was used to excise this as well. Hemostasis was achieved. At this point, the other hemorrhoidal tissue does not appear to be very inflamed at this point, so did not do any further. A plug was created and inserted into the anus. The area was washed and dried and the patient was taken to the recovery room in stable condition. Job ID: [id number] DocumentID: [id number] Dictated Date: 08/18/2021 15:27:07 Web Design Intern Date: 08/18/2021 23:22:08 Dictated By: ROSAURA GARCIA DO
== END 2021-08-18 13:30 ==
LOC: SDC 07:22
PROVIDERS: ATTEND Surgery
DX: K64.4 Residual hemorrhoidal skin tags (principal); K64.8 Other hemorrhoids; Z79.899 Other long term (current) drug therapy
CPT/HCPCS: 87081

== ENCOUNTER 2021-12-28 05:50 | Outpatient (CLI) | payer MEDICARE, OTHER ==
[~2021-12-28] VITALS: Ht 162.6 cm; Wt 71.2 kg
[~2021-12-28 05:50] MED LIST changes: +ACHD5005 PO; +DOCU-143 PO; +LEVO-55 PO; -LEVO500T81 PO; -TRIA1CAP4 PO; +TRIA1CAP84 PO
[2021-12-29] MEDS ORDERED: OXYB-52 PO (09:40)
[2021-12-29] MEDS ORDERED: HYOS-20 PO (09:40)
[2021-12-29] MEDS ORDERED: L.AC1CAP6 PO (09:40)
[2021-12-29] MEDS ORDERED: FAMO40TA6 PO (09:40)
[2021-12-29] MEDS ORDERED: EST1.25T PO (09:40)
== END 2021-12-29 09:45 | disposition home or self-care (01) ==
LOC: PREOP 05:50
PROVIDERS: ATTEND Surgery
DX: Z01.818 Encounter for other preprocedural examination (principal)

== ENCOUNTER 2022-01-10 11:40 | Day surgery (SDC) | payer MEDICARE, OTHER ==
[~2022-01-10] VITALS: Ht 163 cm; Wt 71.2 kg
[~2022-01-10 11:40] MED LIST changes: +FAMO40TA6 PO; +HYOS-20 PO; +OXYB-52 PO
[2022-01-10] MEDS ORDERED: LACTATED RINGERS 1,000 ML IV STA (11:42)
[2022-01-10 12:00] VITALS: BP 152/80
[2022-01-10] MEDS ORDERED: LACTATED RINGERS 1,000 ML IV ONE (12:10)
--- NOTE | 2022-01-10 13:50 | Progress Note-Pre Operative ---
Pre-Operative Progress Note Date of Available H&P: Dec 19, 2021 Date H&P Reviewed: Jan 10, 2022 Time H&P Reviewed: 13:50 History & Physical: H&P Reviewed, Patient Examed, No changes noted Pre-Operative Diagnosis: Hx ulcerative colitis ROSAURA VEGA DO Jan 10, 2022 13:50
[2022-01-10] MEDS ORDERED: PROPOFOL INJECTION 50 ML IV ONE (15:35)
--- NOTE | 2022-01-10 16:06 | Discharge Inst-Simple/Standard ---
Discharge Inst-Standard Patient Instructions/Follow Up Plan of Care/Instructions/FU: Follow up on as needed basis Activity as Tolerated: Yes Discharge Diet: No Restrictions, Regular Diet ROSAURA VEGA DO Jan 10, 2022 16:06
[2022-01-10 16:07] VITALS: BP 131/79
--- NOTE | 2022-01-10 16:09 | Anesthesia-General Post-Op ---
MAC Patient Condition Mental Status/LOC: Same as Preop Cardiovascular: Satisfactory Nausea/Vomiting: Absent Respiratory: Satisfactory Pain: Controlled Complications: Absent Post Op Complications Complications None Follow Up Care/Instructions Patient Instructions None needed. Anesthesiology Discharge Order Discharge Order Patient is doing well, no complaints, stable vital signs, no apparent adverse anesthesia problems. No complications reported per nursing. JJ PAINTING CRNA Jan 10, 2022 16:09
[2022-01-10 16:10] VITALS: BP 132/75
[2022-01-10 16:26] VITALS: BP 158/82
[2022-01-10 16:41] VITALS: BP 158/82
--- NOTE | 2022-01-11 01:03 | OPERATIVE REPORT ---
DATE OF SERVICE: 01/10/2022 PREOPERATIVE DIAGNOSIS: History of ulcerative colitis. POSTOPERATIVE DIAGNOSIS: Normal colon. PROCEDURE: Colonoscopy. 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 ESTIMATED BLOOD LOSS: None. COMPLICATIONS: None. INDICATIONS: The patient is a 81-year-old female who has a history of ulcerative colitis. She understands the risks and benefits of the procedure and wishes to proceed. Consent was signed in chart. DESCRIPTION OF PROCEDURE: The patient was taken to the endoscopy suite, placed in left lateral position. Timeout was performed. Digital rectal exam was performed. No palpable masses or ulcerations. Scope was inserted in the rectum and all the way to the cecum with minimal difficulty. Prep was adequate. Scope was slowly retracted back. No polyps, masses or ulcerations in the cecum, ascending, transverse, descending and sigmoid colon. Once in the rectum, scope was retroflexed. No other pathology. Scope was returned to its normal position slowly withdrawn to completely remove. The patient tolerated the procedure well with no complications. She was taken to recovery in stable condition. RECOMMENDATIONS: The patient if continues to desire to have a colonoscopy every 2 years as she as recommended by GI previously. She can be seen in 2 years and any issues before that be seen at that time, also if benefits outweigh the risk. Job ID: [id number] DocumentID: [id number] Dictated Date: 01/10/2022 16:12:07 [employer] Date: 01/11/2022 01:02:00 Dictated By: ROSAURA GARCIA DO
== END 2022-01-10 16:41 | disposition home or self-care (01) ==
LOC: ENDO 11:40
PROVIDERS: ATTEND Surgery
DX: Z12.11 Encounter for screening for malignant neoplasm of colon (principal); Z87.19 Personal history of other diseases of the digestive system